=== PATIENT | male | born 1985 | race Hispanic/Latino ===

== ENCOUNTER 2022-07-08 18:38 | Emergency (ER) | payer MEDICARE ==
[~2022-07-08] VITALS: Ht 172.7 cm; Wt 67.1 kg
[2022-07-08 18:44] VITALS: BP 140/85
== END 2022-07-08 20:17 | disposition left against medical advice (07) ==
LOC: EDH 18:38
DX: J02.9 Acute pharyngitis, unspecified (principal); Z53.21 Procedure and treatment not carried out due to patient leaving prior to being seen by health care provider
CPT/HCPCS: 87880; 99281

== ENCOUNTER 2023-05-09 18:42 | Emergency (ER) | payer MEDICARE ==
[~2023-05-09] VITALS: Ht 172.7 cm; Wt 74.8 kg
[2023-05-09 18:47] VITALS: BP 120/81; PULSE 92; RESP 19
== END 2023-05-09 21:35 | disposition left against medical advice (07) ==
LOC: EDH 18:42
DX: M79.641 Pain in right hand (principal); Z53.21 Procedure and treatment not carried out due to patient leaving prior to being seen by health care provider
CPT/HCPCS: 99281